=== PATIENT | female | born 1980 | race Caucasian/White ===

== ENCOUNTER 2020-10-23 14:43 | Outpatient (REF) | payer OTHER, SELFPAY | END 2020-10-23 14:44 | disposition home or self-care (01) | LOC: HO.LAB 14:43 | PROVIDERS: Visit Provider Internal Medicine | DX: Z20.828 Contact with and (suspected) exposure to other viral communicable diseases (principal) | CPT/HCPCS: C9803; U0003 ==

== ENCOUNTER 2022-10-17 15:27 | Emergency (ER) | payer OTHER, SELFPAY ==
--- NOTE | ~2022-10-17 | XR_ITS ---
EXAMINATION: XR CHEST CLINICAL INFORMATION: Chest pain COMPARISON: None TECHNIQUE: Frontal view of the chest was obtained. FINDINGS: The lungs are clear. No airspace consolidation, pleural effusion, or pneumothorax. The cardiomediastinal silhouette is within normal limits. No acute osseous injury. Mild levoconvex curvature of the lower thoracic and upper lumbar spine. Cholecystectomy clips project in the right upper quadrant. XR/XR chest 1V IMPRESSION: No acute pulmonary process.
--- NOTE | 2022-10-17 15:29 | ECG_ITS ---
Test Reason : chest pain Blood Pressure : / mmHG Vent. Rate : 094 BPM Atrial Rate : 094 BPM P-R Int : 128 ms QRS Dur : 074 ms QT Int : 350 ms P-R-T Axes : 058 054 018 degrees QTc Int : 437 ms Normal sinus rhythm Normal ECG No previous ECGs available Referred By: Lazarus Garcia Electronically Signed By:Rolando Burdick
[2022-10-17 16:10] VITALS: BP 127/86; PULSE 93; RESP 18; TEMP 36.8; O2SAT 100; BMI 31.1
--- NOTE | 2022-10-17 16:14 | ED.CHESTPAIN ---
HPI - Chest Pain General Chief Complaint: Chest Pain <EDIS Macedo - Last Filed: 10/20/22 09:54> Stated Complaint: chest pain radiating around to the back <EDIS Macedo - Last Filed: 10/20/22 09:54> Time Seen by Provider: 10/17/22 19:50 <EDIS Macedo - Last Filed: 10/20/22 09:54> Source: patient <Stefan Garcia MD - Last Filed: 10/18/22 02:42> Limitations: no limitations <Stefan Garcia MD - Last Filed: 10/18/22 02:42> History of Present Illness HPI narrative: This is a 42-year-old female who complains of sharp fleeting chest pains for the last 3 days. The patient denies any shortness of breath, nausea, sweats, radiation of the pain. She does note that she is under lot of stress recently and ?has a lot on her plate?. She notes that a grandchild has recently had open heart surgery and that her daughter is also fighting for custody of the baby. She denies any history of hypertension or diabetes. She is not a smoker. She does feel safe at home. She denies any history of anxiety per se <Stefan Garcia MD - Last Filed: 10/18/22 02:42> Related Data Home Medications: Previous Rx's Medication Instructions Recorded lorazepam 1 mg tablet 1 mg PO TID PRN anxiety #10 tabs 10/17/22 <EDIS Macedo - Last Filed: 10/20/22 09:54> Allergies/Adverse Reactions: Allergies Allergy/AdvReac Type Severity Reaction Status Date / Time No Known Allergies Allergy Unverified 08/03/20 17:33 [No Known Allergies*] <EDIS Macedo - Last Filed: 10/20/22 09:54> Review of Systems Review of Systems: Yes all other systems are reviewed and are negative <Stefan Garcia MD - Last Filed: 10/18/22 02:42> Constitutional: Constitutional: Reports as per HPI and Denies fever(s) <Stefan Garcia MD - Last Filed: 10/18/22 02:42> Eyes: Eyes: Reports as per HPI and Reports no additional eye complaints <Stefan Garcia MD - Last Filed: 10/18/22 02:42> ENT: Reports system reviewed and no additional complaints, except as documented, Reports as per HPI, Denies nasal congestion, Denies nasal discharge and Denies sore throat <Stefan Garcia MD - Last Filed: 10/18/22 02:42> Cardiovascular: Cardiovascular: Reports as per HPI, Reports chest pain and Denies dyspnea <Stefan Garcia MD - Last Filed: 10/18/22 02:42> Respiratory: Respiratory: Reports as per HPI, Denies cough and Denies dyspnea <Stefan Garcia MD - Last Filed: 10/18/22 02:42> Gastrointestinal: Gastrointestinal: Reports as per HPI, Denies abdominal pain, Denies diarrhea and Denies vomiting <Stefan Garcia MD - Last Filed: 10/18/22 02:42> Genitourinary: Genitourinary: Reports as per HPI, Denies hematuria, Denies urinary frequency and Denies dysuria <Stefan Garcia MD - Last Filed: 10/18/22 02:42> Musculoskeletal: Musculoskeletal: Reports no additional musculoskeletal complaints and Denies numbness <Stefan Garcia MD - Last Filed: 10/18/22 02:42> Integumentary/Breasts: Skin/Breast: Reports as per HPI and Denies rash <Stefan Garcia MD - Last Filed: 10/18/22 02:42> Neurologic: Reports as per HPI, Denies focal weakness and Denies numbness <Stefan Garcia MD - Last Filed: 10/18/22 02:42> Psychiatric: Psychiatric: Reports no additional psychiatric complaints and Reports as per HPI <Stefan Garcia MD - Last Filed: 10/18/22 02:42> Endocrine: Endocrine: Reports no additional endocrine complaints and Reports as per HPI <Stefan Garcia MD - Last Filed: 10/18/22 02:42> Hematologic/Lymphatic: Hematologic/Lymphatic: Reports no additional hematologic/lymphatic complaints, Reports as per HPI and Reports other (No peripheral edema) <Stefan Garcia MD - Last Filed: 10/18/22 02:42> [facility] Social History Social History: Social History Advance Directives: No Advance Directives Information Provided: No <EDIS Macedo - Last Filed: 10/20/22 09:54> Physical Exam Vital Signs: Vital Signs: Last Vital Signs Temp 98.0 F 10/17/22 20:58 Pulse 78 10/17/22 20:58 Resp 17 10/17/22 20:58 BP 112/71 10/17/22 20:58 Pulse Ox 98 10/17/22 20:58 O2 Del Method 10/17/22 20:58 BMI result Body Mass Index 31.1 <EDIS Macedo - Last Filed: 10/20/22 09:54> Vital Signs: Last Vital Signs Temp 98.0 F 10/17/22 20:58 Pulse 78 10/17/22 20:58 Resp 17 10/17/22 20:58 BP 112/71 10/17/22 20:58 Pulse Ox 98 10/17/22 20:58 O2 Del Method 10/17/22 20:58 BMI result Body Mass Index 31.1 <Stefan Garcia MD - Last Filed: 10/18/22 02:42> Course Course Course Narrative: RME: patient presents to the ED for sharp left sided chest pain radiating to the back since yesterday. paietn is not in any distress. SARS, labs, EKG, and chest xray ordered <EDIS Macedo - Last Filed: 10/20/22 09:54> MDM - Chest Pain MDM Narrative Medical decision making narrative: Patient with chest discomfort recently, also notes a lot of stress, did become tearful. Patient appears to have anxiety related symptoms. Workup including EKG and troponin negative. Will prescribe lorazepam to use p.r.n. <Stefan Garcia MD - Last Filed: 10/18/22 02:42> Lab Data Attestation: I reviewed the patient's lab results. <Stefan Garcia MD - Last Filed: 10/18/22 02:42> Result diagrams: : 10/17/22 16:27 10/17/22 16:27 <EDIS Macedo - Last Filed: 10/20/22 09:54> Labs: Lab Results 10/17/22 10/17/22 10/17/22 Range/Units 16:27 16:27 16:27 WBC 7.0 (4.8-10.8) X10*3/uL RBC 4.18 L (4.20-5.50) X10*6/uL Hgb 12.0 (12.0-16.0) g/dl Hct 36.8 L (37.0-47.0) % MCV 88.0 (80.0-98.0) fL MCH 28.7 (27.0-33.0) pg MCHC 32.6 (31.0-35.0) g/dl RDW 13.5 (11.0-16.0) % Plt Count 291 (160-400) X10*3/uL MPV 10.6 (9.4-12.3) fL Immature Gran % (Auto) 0.3 (0.0-0.4) % Neut % (Auto) 57.1 (45-73) % Lymph % (Auto) 35.5 (20-40) % [place] % (Auto) 4.7 (2-11) % Eos % (Auto) 1.7 (0-4) % Baso % (Auto) 0.7 (0-2) % Lymph # (Auto) 2.5 (1.2-4.9) X10*3/uL [place] # (Auto) 0.3 (0.1-1.2) X10*3/uL Eos # (Auto) 0.1 (0.0-0.4) X10*3/uL Baso # (Auto) 0.1 (0.0-0.2) X10*3/uL Abs Immat Gran (auto) 0.02 (0.00-0.03) X10*3/uL Absolute Neuts (auto) 4.0 (2.0-8.3) x10*3/uL Absolute Nucleated RBC 0.000 (0.0-0.012) X10*3/uL Nucleated RBC % (auto) 0.0 (0.0-0.2) /100WBC PT 11.0 (10.0-13.1) SEC INR 1.0 (0.9-1.1) APTT 38.2 H (26.0-36.4) SEC D-Dimer High Sensitivty 232 NG/ML Sodium 137 (135-145) mmol/L Potassium 3.7 (3.3-5.1) mmol/L Chloride 101 (96-108) mmol/L Carbon Dioxide 29 (22-29) mmol/L Anion Gap 11 L (12-20) BUN 16 (9-16) mg/dL Creatinine 0.86 (0.5-1.4) mg/dL Estim Creat Clear Calc 77.2 Estimated GFR > 60 Random Glucose 92 (60-115) mg/dL Calcium 10.1 (8.4-10.2) mg/dL Total Bilirubin 0.3 (0.0-1.0) mg/dL AST 18 (5-31) U/L ALT 14 (0-31) U/L Alkaline Phosphatase 94 (39-117) U/L Troponin I High Sens (<3.5-17.0) ng/L B-Natriuretic Peptide (<100) pg/mL Total Protein 7.6 (6.5-8.0) g/dL Albumin 4.5 (3.5-5.0) g/dL Influenza Type A (PCR) (Negative) Influenza Type B (PCR) (Negative) RSV RNA Qual (PCR) (Negative) SARS-CoV-2 RNA (RT-PCR) (Negative) 10/17/22 10/17/22 10/17/22 Range/Units 16:27 16:27 19:53 WBC (4.8-10.8) X10*3/uL RBC (4.20-5.50) X10*6/uL Hgb (12.0-16.0) g/dl Hct (37.0-47.0) % MCV (80.0-98.0) fL MCH (27.0-33.0) pg MCHC (31.0-35.0) g/dl RDW (11.0-16.0) % Plt Count (160-400) X10*3/uL MPV (9.4-12.3) fL Immature Gran % (Auto) (0.0-0.4) % Neut % (Auto) (45-73) % Lymph % (Auto) (20-40) % [place] % (Auto) (2-11) % Eos % (Auto) (0-4) % Baso % (Auto) (0-2) % Lymph # (Auto) (1.2-4.9) X10*3/uL [place] # (Auto) (0.1-1.2) X10*3/uL Eos # (Auto) (0.0-0.4) X10*3/uL Baso # (Auto) (0.0-0.2) X10*3/uL Abs Immat Gran (auto) (0.00-0.03) X10*3/uL Absolute Neuts (auto) (2.0-8.3) x10*3/uL Absolute Nucleated RBC (0.0-0.012) X10*3/uL Nucleated RBC % (auto) (0.0-0.2) /100WBC PT (10.0-13.1) SEC INR (0.9-1.1) APTT (26.0-36.4) SEC D-Dimer High Sensitivty NG/ML Sodium (135-145) mmol/L Potassium (3.3-5.1) mmol/L Chloride (96-108) mmol/L Carbon Dioxide (22-29) mmol/L Anion Gap (12-20) BUN (9-16) mg/dL Creatinine (0.5-1.4) mg/dL Estim Creat Clear Calc Estimated GFR Random Glucose (60-115) mg/dL Calcium (8.4-10.2) mg/dL Total Bilirubin (0.0-1.0) mg/dL AST (5-31) U/L ALT (0-31) U/L Alkaline Phosphatase (39-117) U/L Troponin I High Sens < 3.5 (<3.5-17.0) ng/L B-Natriuretic Peptide 15 (<100) pg/mL Total Protein (6.5-8.0) g/dL Albumin (3.5-5.0) g/dL Influenza Type A (PCR) NEGATIVE (Negative) Influenza Type B (PCR) NEGATIVE (Negative) RSV RNA Qual (PCR) NEGATIVE (Negative) SARS-CoV-2 RNA (RT-PCR) NEGATIVE (Negative) <EDIS Macedo - Last Filed: 10/20/22 09:54> Lab Results 10/17/22 10/17/22 10/17/22 Range/Units 16:27 16:27 16:27 WBC 7.0 (4.8-10.8) X10*3/uL RBC 4.18 L (4.20-5.50) X10*6/uL Hgb 12.0 (12.0-16.0) g/dl Hct 36.8 L (37.0-47.0) % MCV 88.0 (80.0-98.0) fL MCH 28.7 (27.0-33.0) pg MCHC 32.6 (31.0-35.0) g/dl RDW 13.5 (11.0-16.0) % Plt Count 291 (160-400) X10*3/uL MPV 10.6 (9.4-12.3) fL Immature Gran % (Auto) 0.3 (0.0-0.4) % Neut % (Auto) 57.1 (45-73) % Lymph % (Auto) 35.5 (20-40) % [place] % (Auto) 4.7 (2-11) % Eos % (Auto) 1.7 (0-4) % Baso % (Auto) 0.7 (0-2) % Lymph # (Auto) 2.5 (1.2-4.9) X10*3/uL [place] # (Auto) 0.3 (0.1-1.2) X10*3/uL Eos # (Auto) 0.1 (0.0-0.4) X10*3/uL Baso # (Auto) 0.1 (0.0-0.2) X10*3/uL Abs Immat Gran (auto) 0.02 (0.00-0.03) X10*3/uL Absolute Neuts (auto) 4.0 (2.0-8.3) x10*3/uL Absolute Nucleated RBC 0.000 (0.0-0.012) X10*3/uL Nucleated RBC % (auto) 0.0 (0.0-0.2) /100WBC PT 11.0 (10.0-13.1) SEC INR 1.0 (0.9-1.1) APTT 38.2 H (26.0-36.4) SEC D-Dimer High Sensitivty 232 NG/ML Sodium 137 (135-145) mmol/L Potassium 3.7 (3.3-5.1) mmol/L Chloride 101 (96-108) mmol/L Carbon Dioxide 29 (22-29) mmol/L Anion Gap 11 L (12-20) BUN 16 (9-16) mg/dL Creatinine 0.86 (0.5-1.4) mg/dL Estim Creat Clear Calc 77.2 Estimated GFR > 60 Random Glucose 92 (60-115) mg/dL Calcium 10.1 (8.4-10.2) mg/dL Total Bilirubin 0.3 (0.0-1.0) mg/dL AST 18 (5-31) U/L ALT 14 (0-31) U/L Alkaline Phosphatase 94 (39-117) U/L Troponin I High Sens (<3.5-17.0) ng/L B-Natriuretic Peptide (<100) pg/mL Total Protein 7.6 (6.5-8.0) g/dL Albumin 4.5 (3.5-5.0) g/dL Influenza Type A (PCR) (Negative) Influenza Type B (PCR) (Negative) RSV RNA Qual (PCR) (Negative) SARS-CoV-2 RNA (RT-PCR) (Negative) 10/17/22 10/17/22 10/17/22 Range/Units 16:27 16:27 19:53 WBC (4.8-10.8) X10*3/uL RBC (4.20-5.50) X10*6/uL Hgb (12.0-16.0) g/dl Hct (37.0-47.0) % MCV (80.0-98.0) fL MCH (27.0-33.0) pg MCHC (31.0-35.0) g/dl RDW (11.0-16.0) % Plt Count (160-400) X10*3/uL MPV (9.4-12.3) fL Immature Gran % (Auto) (0.0-0.4) % Neut % (Auto) (45-73) % Lymph % (Auto) (20-40) % [place] % (Auto) (2-11) % Eos % (Auto) (0-4) % Baso % (Auto) (0-2) % Lymph # (Auto) (1.2-4.9) X10*3/uL [place] # (Auto) (0.1-1.2) X10*3/uL Eos # (Auto) (0.0-0.4) X10*3/uL Baso # (Auto) (0.0-0.2) X10*3/uL Abs Immat Gran (auto) (0.00-0.03) X10*3/uL Absolute Neuts (auto) (2.0-8.3) x10*3/uL Absolute Nucleated RBC (0.0-0.012) X10*3/uL Nucleated RBC % (auto) (0.0-0.2) /100WBC PT (10.0-13.1) SEC INR (0.9-1.1) APTT (26.0-36.4) SEC D-Dimer High Sensitivty NG/ML Sodium (135-145) mmol/L Potassium (3.3-5.1) mmol/L Chloride (96-108) mmol/L Carbon Dioxide (22-29) mmol/L Anion Gap (12-20) BUN (9-16) mg/dL Creatinine (0.5-1.4) mg/dL Estim Creat Clear Calc Estimated GFR Random Glucose (60-115) mg/dL Calcium (8.4-10.2) mg/dL Total Bilirubin (0.0-1.0) mg/dL AST (5-31) U/L ALT (0-31) U/L Alkaline Phosphatase (39-117) U/L Troponin I High Sens < 3.5 (<3.5-17.0) ng/L B-Natriuretic Peptide 15 (<100) pg/mL Total Protein (6.5-8.0) g/dL Albumin (3.5-5.0) g/dL Influenza Type A (PCR) NEGATIVE (Negative) Influenza Type B (PCR) NEGATIVE (Negative) RSV RNA Qual (PCR) NEGATIVE (Negative) SARS-CoV-2 RNA (RT-PCR) NEGATIVE (Negative) <Stefan Garcia MD - Last Filed: 10/18/22 02:42> Imaging Data Chest x-ray: Radiologist's impression: IMPRESSION: No acute pulmonary process. <Stefan Garcia MD - Last Filed: 10/18/22 02:42> ECG Data ECG #1: ECG interpretation date: 10/17/22 <Stefan Garcia MD - Last Filed: 10/18/22 02:42> ECG interpretation time: 20:01 <Stefan Garcia MD - Last Filed: 10/18/22 02:42> Ischemic changes: t wave inversions <Stefan Garcia MD - Last Filed: 10/18/22 02:42> Interpretation: Sinus rhythm with a rate of 94. Normal rate progression. No ST elevation or depression. Normal EKG. <Stefan Garcia MD - Last Filed: 10/18/22 02:42> Discharge Plan Discharge Clinical Impression: Atypical chest pain, Anxiety <EDIS Macedo - Last Filed: 10/20/22 09:54> Patient Disposition: Home, Self-Care <EDIS Macedo - Last Filed: 10/20/22 09:54> Instructions: Noncardiac Chest Pain (ED), Anxiety (ED) <EDIS Macedo - Last Filed: 10/20/22 09:54> Additional Instructions: Use lorazepam as prescribed as needed for anxiety or associated chest symptoms. Follow up with your primary care physician. Return for any new or worsened symptoms <EDIS Macedo - Last Filed: 10/20/22 09:54> Prescriptions: New lorazepam 1 mg tablet 1 mg PO TID PRN (Reason: anxiety) Qty: 10 0RF <EDIS Macedo - Last Filed: 10/20/22 09:54> Interventions: ED Discharge Assessment Last Done: 10/17/22 21:00 <EDIS Macedo - Last Filed: 10/20/22 09:54> Discharge Date/Time: 10/17/22 21:01 <EDIS Macedo - Last Filed: 10/20/22 09:54>
[2022-10-17 16:45] LABS: MANUAL DIFF FLAG NO
[2022-10-17 16:48] LABS: Basophils Absolute Auto 0.1 X10*3/uL (0.0-0.2); Basophils Percent Auto 0.7 % (0-2); Eosinophils Absolute Auto 0.1 X10*3/uL (0.0-0.4); Eosinophils Percent Auto 1.7 % (0-4); Hematocrit 36.8 % (37.0-47.0); Imm Gran Abs Auto 0.02 X10*3/uL (0.00-0.03); Imm Gran Pct Auto 0.3 % (0.0-0.4); Lymphocytes Absolute Auto 2.5 X10*3/uL (1.2-4.9); Lymphocytes Percent Auto 35.5 % (20-40); Mean Corpuscular HGB Conc 32.6 g/dl (31.0-35.0); Mean Corpuscular Hemoglobin 28.7 pg (27.0-33.0); Mean Platelet Volume 10.6 fL (9.4-12.3); Monocytes Absolute Auto 0.3 X10*3/uL (0.1-1.2); Monocytes Percent Auto 4.7 % (2-11); Neutrophils Percent Auto 57.1 % (45-73); Platelet Count 291 X10*3/uL (160-400); Red Blood Count 4.18 X10*6/uL (4.20-5.50); Red Cell Distribution Width 13.5 % (11.0-16.0)
[2022-10-17 16:55] LABS: D Dimer High Sensitivity 232 NG/ML
[2022-10-17 16:56] LABS: Partial Thromboplastin Time 38.2 SEC (26.0-36.4)
[2022-10-17 17:04] LABS: Alanine Aminotransferase 14 U/L (0-31); Albumin Level 4.5 g/dL (3.5-5.0); Alkaline Phosphatase 94 U/L (39-117); Anion Gap 11 (12-20); Aspartate Amino Transferase 18 U/L (5-31); Bilirubin Total 0.3 mg/dL (0.0-1.0); Blood Urea Nitrogen 16 mg/dL (9-16); Calcium 10.1 mg/dL (8.4-10.2); Carbon Dioxide 29 mmol/L (22-29); Chloride 101 mmol/L (96-108); Creatinine Clr Calc Pharmacy 77.2; Estimated Glomerular Filt Rate > 60; Glucose Random 92 mg/dL (60-115); Potassium 3.7 mmol/L (3.3-5.1); Sodium 137 mmol/L (135-145); Total Protein 7.6 g/dL (6.5-8.0)
[2022-10-17 17:14] LABS: Troponin-I High Sensitivity < 3.5 ng/L (<3.5-17.0)
[2022-10-17 19:29] LABS: B Type Natriuretic Peptide 15 pg/mL (<100)
--- NOTE | 2022-10-17 20:35 | PC.NURSE ---
EKG done at 1643 not documented.
[2022-10-17 20:43] LABS: Influenza A PCR NEGATIVE (Negative); Influenza B PCR NEGATIVE (Negative); Resp Syncy Virus RNA Qual PCR NEGATIVE (Negative); SARS COV2 PCR INHOUSE NEGATIVE (Negative)
[2022-10-17 20:58] VITALS: BP 112/71; PULSE 78; RESP 17; TEMP 36.7; O2SAT 98
== END 2022-10-17 21:01 | disposition home or self-care (01) ==
PROVIDERS: Physician Assistant; Emergency Provider Emergency Medicine
DX: R07.89 Other chest pain (principal); F41.9 Anxiety disorder, unspecified; Z20.822 Contact with and (suspected) exposure to COVID-19
CPT/HCPCS: 0241U; 36415; 71045; 80053; 83880; 84484; 85025; 85379; 85610; 85730; 93005; 99283; 99284